=== PATIENT | female | born 1945 | race African-American/Black ===

== ENCOUNTER 2019-05-21 19:37 | Emergency (ER) | payer OTHER, MEDICAID ==
[~2019-05-21] VITALS: Ht 167.6 cm; Wt 91.6 kg
[~2019-05-21 19:37] MED LIST: AMLO10TA8 PO; CRESTOR20 MG PO; DIAZ5TAB PO; FERR325T14 PO; INSU100I17 SQ; INSU100V13 SQ; LISI1TAB20 PO; LORA10TA3 PO; METO-239 PO; OMEP20CA10 PO
[2019-05-21] MEDS ORDERED: DIPHTH,PERTUSS(ACELL),TET TOX 0.5 ML DISP.SYRIN. VAX IM ONE (20:15)
[2019-05-21 20:56] LABS: BASO # 0.1 x10^3/uL (0.0-0.2); BASO % 1 % (0-3); EOS # 0.3 x10^3/uL (0.0-0.7); EOS % 3 % (0-3); HEMOGLOBIN 10.2 g/dL (12.0-15.5); LYMPH % 42 % (24-48); MEAN CORPUSCULAR HEMOGLOBIN 25 pg (25-35); MEAN CORPUSCULAR HGB CONC 32 g/dL (31-37); MEAN CORPUSCULAR VOLUME 77 fL (79-100); MONO # 0.5 x10^3/uL (0.0-1.1); MONO % 5 % (0-9); NEUT # 4.8 x10^3/uL (1.8-7.7); NEUT % 49 % (31-73); PLATELET COUNT 248 x10^3/uL (140-400); RED BLOOD COUNT 4.16 x10^6/uL (3.50-5.40); RED CELL DISTRIBUTION WIDTH 16.1 % (11.5-14.5); WHITE BLOOD COUNT 9.6 x10^3/uL (4.0-11.0)
[2019-05-21 21:04] LABS: CALCIUM 9.3 mg/dL (8.5-10.1); CREATININE 1.2 mg/dL (0.6-1.0); GFR 53.6; POTASSIUM 4.2 mmol/L (3.5-5.1)
--- NOTE | 2019-05-21 21:08 | PHYS DOC ---
Past Medical History Past Medical History: Diabetes-Type II, High Cholesterol, Hypertension Additional Past Medical Histor: enlarged heart (TAMIKO SALAZAR APRN) Past Surgical History: Appendectomy, Cholecystectomy Additional Past Surgical Histo: R mastectomy, bilateral big toe nail removal (TAMIKO SALAZAR APRN) Alcohol Use: None Drug Use: None (TAMIKO SALAZAR APRN) Attending Signature I have participated in the care of this patient and I have reviewed and agree with all pertinent clinical information above including history, exam, and recommendations. (JOSEPH BETANCOURT MD) Adult General Chief Complaint Chief Complaint: TOE PROBLEM HPI HPI Patient is a 73 year old female with hx of DMII, HTN who presents with right great pain rated at 6/10, described as throbbing, she states this pain is been going on since February when the removed her bilateral great toenails. She states after the removal of the great toes the right great toe was not healing up well. She states the PCP has been monitoring it. She states for the last 3 days he has noted an area of darkening on the right great toe but no drainage. Denies any fever. (TAMIKO SALAZAR APRN) Review of Systems Review of Systems Constitutional: Denies fever or chills [] Eyes: Denies change in visual acuity, redness, or eye pain [] HENT: Denies nasal congestion or sore throat [] Respiratory: Denies cough or shortness of breath [] Cardiovascular: No additional information not addressed in HPI [] GI: Denies abdominal pain, nausea, vomiting, bloody stools or diarrhea [] : Denies dysuria or hematuria [] Musculoskeletal: Denies back pain or joint pain [] Integument: Reports right great toe nail pain and possible infection Neurologic: Denies headache, focal weakness or sensory changes [] All other systems were reviewed and found to be within normal limits, except as documented in this note. (TAMIKO SALAZAR APRN) Current Medications Current Medications Current Medications Medications (Trade) Dose Ordered Sig/Barbara Start Time Stop Time Status Last Admin Dose Admin Clindamycin Phosphate 50 ml @ 100 mls/hr 1X ONCE 05/21/19 21:15 05/21/19 21:44 DC 05/21/19 21:36 100 MLS/HR Diphtheria/ Tetanus/Acell Pertussis (Boostrix) 0.5 ml ONCE ONCE 05/21/19 20:15 05/21/19 20:16 DC 05/21/19 20:29 0.5 ML (JOSEPH BETANCOURT MD) Allergies Allergies Allergies Coded Allergies Type Severity Reaction Last Updated Verified Penicillins Allergy Intermediate 05/21/19 Yes codeine Allergy Intermediate 05/21/19 Yes (JOSEPH BETANCOURT MD) Physical Exam Physical Exam Constitutional: Well developed, well nourished, no acute distress, non-toxic appearance. [] HENT: Normocephalic, atraumatic, bilateral external ears normal, oropharynx moist, no oral exudates, nose normal. [] Eyes: PERRLA, EOMI, conjunctiva normal, no discharge. [] Neck: Normal range of motion, no tenderness, supple, no stridor. [] Cardiovascular:Heart rate regular rhythm, no murmur [] Lungs & Thorax: Bilateral breath sounds clear to auscultation [] Abdomen: Bowel sounds normal, soft, no tenderness, no masses, no pulsatile masses. [] Skin: Missing bilateral great toe nails, right great toe has some redness on the distal nail with small area of superficial darkness mid phalanx. Neurovascular exam is intact to the right great toe. +2 right pedal pulse. Full range of motion to the right great toe. Back: No tenderness, no CVA tenderness. [] Extremities: No tenderness, no cyanosis, no clubbing, ROM intact, no edema. [] Neurologic: Alert and oriented X 3, normal motor function, normal sensory function, no focal deficits noted. [] Psychologic: Affect normal, judgement normal, mood normal. [] (TAMIKO SALAZAR APRN) Current Patient Data Vital Signs Vital Signs Date Time Temp Pulse Resp B/P (MAP) Pulse Ox O2 Delivery O2 Flow Rate FiO2 05/21/19 22:15 85 18 157/76 (103) 97 Room Air 05/21/19 19:40 98.4 98.4 (JOSEPH BETANCOURT MD) Lab Values Laboratory Tests Test 05/21/19 19:47 05/21/19 20:45 Glucose (Fingerstick) 167 mg/dL (70-99) H White Blood Count 9.6 x10^3/uL (4.0-11.0) Red Blood Count 4.16 x10^6/uL (3.50-5.40) Hemoglobin 10.2 g/dL (12.0-15.5) L Hematocrit 32.0 % (36.0-47.0) L Mean Corpuscular Volume 77 fL (79-100) L Mean Corpuscular Hemoglobin 25 pg (25-35) Mean Corpuscular Hemoglobin Concent 32 g/dL (31-37) Red Cell Distribution Width 16.1 % (11.5-14.5) H Platelet Count 248 x10^3/uL (140-400) Neutrophils (%) (Auto) 49 % (31-73) Lymphocytes (%) (Auto) 42 % (24-48) Monocytes (%) (Auto) 5 % (0-9) Eosinophils (%) (Auto) 3 % (0-3) Basophils (%) (Auto) 1 % (0-3) Neutrophils # (Auto) 4.8 x10^3/uL (1.8-7.7) Lymphocytes # (Auto) 4.0 x10^3/uL (1.0-4.8) Monocytes # (Auto) 0.5 x10^3/uL (0.0-1.1) Eosinophils # (Auto) 0.3 x10^3/uL (0.0-0.7) Basophils # (Auto) 0.1 x10^3/uL (0.0-0.2) Erythrocyte Sedimentation Rate 73 (0-25) H Sodium Level 142 mmol/L (136-145) Potassium Level 4.2 mmol/L (3.5-5.1) Chloride Level 104 mmol/L (98-107) Carbon Dioxide Level 28 mmol/L (21-32) Anion Gap 10 (6-14) Blood Urea Nitrogen 27 mg/dL (7-20) H Creatinine 1.2 mg/dL (0.6-1.0) H Estimated GFR (Cockcroft-Gault) 53.6 BUN/Creatinine Ratio 23 (6-20) H Glucose Level 172 mg/dL (70-99) H Calcium Level 9.3 mg/dL (8.5-10.1) Total Bilirubin 0.2 mg/dL (0.2-1.0) Aspartate Amino Transferase (AST) 56 U/L (15-37) H Alanine Aminotransferase (ALT) 32 U/L (14-59) Alkaline Phosphatase 91 U/L (46-116) C-Reactive Protein, Quantitative 4.9 mg/L (0-3.3) H Total Protein 8.0 g/dL (6.4-8.2) Albumin 3.8 g/dL (3.4-5.0) Albumin/Globulin Ratio 0.9 (1.0-1.7) L Laboratory Tests 05/21/19 20:45 Laboratory Tests 05/21/19 20:45 (JOSEPH BETANCOURT MD) EKG EKG [] (TAMIKO SALAZAR APRN) Radiology/Procedures Radiology/Procedures [] (TAMIKO SALAZAR APRN) Course & Med Decision Making Course & Med Decision Making Pertinent Labs and Imaging studies reviewed. (See chart for details) This is a 73 year old female with right great toe pain and superficial infection. Right foot x-rays are negative for any acute findings, venous Doppler and arterial Dopplers of the right lower extremity and negative for any acute findings. CBC with a normal WBC. CMP with glucose of 172, anion gap is normal. Patient was given IV fluid and clindamycin in the ED. Discharged with the same. Follow-up with PCP next week (TAMIKO SALAZAR APRN) Dragon Disclaimer Dragon Disclaimer This electronic medical record was generated, in whole or in part, using a voice recognition dictation system. (TAMIKO SALAZAR APRN) Departure Departure Impression: Primary Impression: Infection of toe Disposition: HOME, SELF-CARE Condition: STABLE Referrals: TJ LEON MD (PCP) Follow-up next week Patient Instructions: Skin Infections Additional Instructions: You have right great toe infection. Take the prescribed antibiotics until completed. Follow-up with your doctor next week. Keep the affected area clean and dry. Scripts Clindamycin Hcl (CLINDAMYCIN HCL) 300 Mg Capsule 1 CAP PO TID, #21 CAP Prov: TAMIKO SALAZAR APRN 05/21/19 TAMIKO SALAZAR APRN May 21, 2019 21:07 JOSEPH BETANCOURT MD May 21, 2019 23:20
[2019-05-21 21:10] LABS: ALBUMIN 3.8 g/dL (3.4-5.0); ALBUMIN/GLOBULIN RATIO 0.9 (1.0-1.7); C-REACTIVE PROTEIN 4.9 mg/L (0-3.3); TOTAL BILIRUBIN 0.2 mg/dL (0.2-1.0)
--- NOTE | 2019-05-21 21:13 | RAD ---
Right foot x-rays 3 views HISTORY: Right great toe infection. FINDINGS: No fracture or dislocation. No lytic bone destruction or periosteal reaction to localize a site of osteomyelitis. Osteoarthritis of the first MTP joint. Mild spur plantar calcaneus. Enthesophyte Achilles tendon insertion at the calcaneus. Mature periosteal ossification plantar cortex of the calcaneus related to an old injury. Arterial vascular calcification. IMPRESSION: No acute osseous injury. Electronically signed by: Ronald Lopez MD (05/21/2019 9:10 PM) [facility]
[2019-05-21] MEDS ORDERED: CLINDAMYCIN 900MG PREMIX 50 ML IV ONE (21:15)
--- NOTE | 2019-05-21 21:51 | RAD ---
Right lower extremity venous duplex Doppler ultrasound HISTORY: Right great toe wound. FINDINGS: No DVT evident with compressibility, patent color Doppler blood flow and augmentation of blood flow the right common femoral vein, common femoral vein, superficial femoral vein and popliteal vein. No DVT evident with breast ability patent color Doppler blood flow the right posterior tibial and peroneal veins in the calf. IMPRESSION: Negative right leg for DVT. Electronically signed by: Ronald Lopez MD (05/21/2019 9:48 PM) [facility]
--- NOTE | 2019-05-21 21:53 | RAD ---
Right lower extremity arterial duplex Doppler ultrasound HISTORY: Right great toe wound. FINDINGS: Mild thin calcification throughout the right leg arteries, there are biphasic waveforms with brisk systolic upstrokes and normal velocities without direct or indirect evidence of significant stenosis or occlusion of the right common femoral artery, profunda femoral artery, superficial femoral artery, popliteal artery, posterior tibial artery, peroneal artery, anterior tibial artery and dorsalis pedis artery. IMPRESSION: Mild thin calcification throughout the right leg arteries. No evidence of significant stenosis or occlusion. Electronically signed by: Ronald Lopez MD (05/21/2019 9:50 PM) [facility]
[2019-05-21 22:15] VITALS: BP 157/76
[2019-05-21] MEDS ORDERED: CLIN300C8 PO (22:16)
== END 2019-05-21 22:45 | disposition home or self-care (01) ==
LOC: ER 19:37
DX: L03.031 Cellulitis of right toe (principal); I10 Essential (primary) hypertension; E11.9 Type 2 diabetes mellitus without complications; E78.00 Pure hypercholesterolemia, unspecified; Z88.0 Allergy status to penicillin; Z88.5 Allergy status to narcotic agent
CPT/HCPCS: 36415; 73630; 80053; 82962; 85025; 85651; 86140; 90471; 90715; 93923; 93971; 96365; 99285; J3490

== ENCOUNTER → 2019-05-31 | Outpatient (CLI) | payer OTHER, MEDICAID ==
[2019-05-21 22:15] VITALS: BP 157/76
[~2019-05-31] MED LIST changes: +CLIN300C8 PO
== END | disposition home or self-care (01) ==
LOC: SPEC 17:26
PROVIDERS: ATTEND Podiatrist Foot & Ankle Surgery
DX: E11.9 Type 2 diabetes mellitus without complications (principal)
CPT/HCPCS: 87071; 87075

== ENCOUNTER → 2021-11-28 | Outpatient (CLI) | payer OTHER, MEDICAID ==
[~2021-11-28] MED LIST changes: +AMLO-187 PO; -AMLO10TA8 PO; +CLIN-94 PO; -CLIN300C8 PO; -LISI1TAB20 PO; +LISI1TAB39 PO; -OMEP20CA10 PO; +OMEP20CA16 PO
--- NOTE | 2021-11-28 16:11 | KCIC ---
Examination: MRI of the right forefoot without contrast HISTORY: Right foot mass, new abscess around the bunion COMPARISON: None available TECHNIQUE: Multiplanar, multisequence MR imaging of the right forefoot was performed without contrast . FINDINGS: The alignment of the tarsal joints, metatarsophalangeal joints, interphalangeal joints grossly appear s unremarkable. Moderate joint space loss and first metatarsophalangeal joint, interphalangeal joints likely degenerative changes. The attachment of the flexor tendons, extensor tendons grossly appears intact. Faint increased T2 signal identified in the soft tissue dorsal and plantar to the first dista l phalanx. There is no acute fracture identified. No evidence of focal fluid collection to suggest an abscess. IMPRESSION: 1. Faint increased T2 signal identified in the soft tissue dorsal and plantar to the first distal ph alanx likely edema or inflammation or scarring. 2. Moderate degenerative changes first metatarsophalangeal joint, interphalangeal joints. Electronically signed by: Martin Banks MD (11/28/2021 4:08 PM) [id number]
== END ==
LOC: KCIC MRI 14:23
PROVIDERS: ATTEND Podiatrist Foot & Ankle Surgery
DX: M19.071 Primary osteoarthritis, right ankle and foot (principal)
CPT/HCPCS: 73718